=== PATIENT | male | born 1990 | race Caucasian/White ===

== ENCOUNTER 2016-11-04 13:48 | Emergency (ER) | payer OTHER ==
[~2016-11-04] VITALS: Ht 170.2 cm; Wt 68.0 kg
[2016-11-04 14:10] LABS: HEMATOCRIT 43.4 % (42.0-52.0); HEMOGLOBIN 15.3 gm/dL (14.0-18.0); MCH 29.6 pg (26.0-34.0); MCHC 35.4 g/dL (28.0-37.0); MCV 83.8 fL (80.0-100.0); PLATELET COUNT 191 thou/uL (150-400); RBC 5.18 mil/uL (4.50-6.00); RDW 13.1 % (10.5-14.5); WBC 5.7 thou/uL (4.0-11.0)
[2016-11-04 14:11] LABS: MANUAL DIFF YES
[2016-11-04 14:14] LABS: URINE BLOOD NEGATIVE (Negative); URINE COLOR YELLOW; URINE GLUCOSE-RANDOM* NEGATIVE (Negative); URINE KETONES NEGATIVE (Negative); URINE NITRITE NEGATIVE (Negative); URINE PROTEIN (DIPSTICK) 2+ (Negative); URINE SPECIFIC GRAVITY 1.025 (1.003-1.035)
[2016-11-04 14:17] LABS: CALCIUM 9.2 mg/dL (8.5-10.1); CREATININE 1.2 mg/dL (0.7-1.3); POTASSIUM 4.2 mmol/L (3.5-5.1)
[2016-11-04 14:18] LABS: URINE BILIRUBIN NEGATIVE (Negative)
[2016-11-04 14:19] LABS: BACTERIA None Seen /HPF (None Seen); CASTS None Seen /LPF (None Seen); CRYSTALS None Seen /LPF (None Seen); SQUAMOUS None Seen /LPF (0-3); URINE RBC None Seen /HPF (0-2); URINE WBC 0-5 Rare /HPF (0-5)
[2016-11-04 14:23] LABS: ALBUMIN 4.5 g/dL (3.4-5.0); TOTAL BILIRUBIN 0.7 mg/dL (<0.1-1.0); TOTAL PROTEIN 8.3 g/dL (6.4-8.2)
[2016-11-04 14:40] LABS: ABSOLUTE NEUTROPHILS 3.3 thou/uL (1.4-8.2); TOTAL CELL COUNT 100
[2016-11-04 16:55] VITALS: BP 126/74
[2016-11-04] MEDS ORDERED: TRAMADOL 50 MG50 MG PO (17:02)
[2016-11-04] MEDS ORDERED: CIPRO500 MG PO (17:02)
[2016-11-04] MEDS ORDERED: ONDANSETRON HCL4 M2 PO (17:04)
== END 2016-11-04 16:50 | disposition home or self-care (01) ==
LOC: ER 13:48
PROVIDERS: Physician Assistant
DX: N41.9 Inflammatory disease of prostate, unspecified (principal); Z88.1 Allergy status to other antibiotic agents